=== PATIENT | female | born 1945 | race Two or more races ===

== ENCOUNTER 2019-02-14 12:28 | Inpatient (IN) | payer OTHER ==
[~2019-02-14] VITALS: Ht 160 cm; Wt 50.3 kg
[2019-02-26] MEDS ORDERED: GABAPENTIN800 MG PO (10:38)
[2019-02-26] MEDS ORDERED: ROVASTATIN PO (10:39)
[2019-02-26] MEDS ORDERED: FOLIC ACID1 MG PO (10:40)
[2019-02-26] MEDS ORDERED: PREDISONE PO (10:41)
[2019-02-26] MEDS ORDERED: METHOTREXATE2.5 MG PO (10:42)
[2019-03-05] MEDS ORDERED: PREDNISONE 5MG (09:52)
[2019-03-05] MEDS ORDERED: ROSUVASTATIN CA20 MG PO (09:53)
[2019-03-08] MEDS ORDERED: OXYC1TAB9 PO (10:06)
[2019-03-08] MEDS ORDERED: INTESTINEX680 M1 PO (10:07)
== END 2019-03-08 12:11 | disposition home or self-care (01) | DRG 330 ==
LOC: SURG 02-26 09:15 → O/R 03-05 05:36 → SURG 03-05 05:36
PROVIDERS: ADMIT Surgery
PROC: 0DJD8ZZ Inspection of Lower Intestinal Tract, Via Natural or Artificial Opening Endoscopic (ICD-10-PCS; 2019-03-05)
PROC: 0DTN4ZZ Resection of Sigmoid Colon, Percutaneous Endoscopic Approach (ICD-10-PCS; principal; 2019-03-05 12:00)
DX: K57.33 Diverticulitis of large intestine without perforation or abscess with bleeding (principal); K56.699 Other intestinal obstruction unspecified as to partial versus complete obstruction

== ENCOUNTER 2019-03-13 23:35 | Inpatient (IN) | payer OTHER ==
[~2019-03-13] VITALS: Ht 160 cm; Wt 54.4 kg
[~2019-03-13 23:35] MED LIST: FOLIC ACID1 MG PO; GABAPENTIN800 MG PO; INTESTINEX680 M1 PO; METHOTREXATE2.5 MG PO; OXYC1TAB9 PO; PREDISONE PO; PREDNISONE 5MG; ROSUVASTATIN CA20 MG PO; ROVASTATIN PO
--- NOTE | 2019-03-13 23:45 | NUR ---
PACIENTE ALERTA Y ORIENTADA X3. PACIENTE TRANSFERIDA DESDE [facility] EN [facility]. REFIERE VENIR POR DOLOR ABDOMINAL DESDE MILLER EN LA MANANA. REFIERE FUE OPERADA EL JARETT [address] MONTEIRO POR DIVERTICULOS. PACIENTE EN PANFILO CON BARANDAS ELEVADAS EN AREA DE OBSERVACION.
--- NOTE | 2019-03-14 01:11 | NUR ---
MS Clare MACKAY ORIENTA A PACIENTE SOBRE ORDENES MEDICAS, COLECTA MUESTRAS DE JOE, CANALIZA VENA Y ADMINISTRA MEDICAMENTOS. PENDIENTE CT SCAN NOTIFICADO A MS VAZQUEZ.
--- NOTE | 2019-03-14 01:17 | NUR ---
PACIENTE ALERTA Y ORIENTADA X3. SE OBSERVA ULCERA EN LADO JUAN JOSÉ CERCA DEL AREA SACRAL. PACIENTE REFIERE SE LA ESTAN CURANDO EN LA CASA.
--- NOTE | 2019-03-14 07:44 | NUR ---
PACIENTE ALERTA Y ORIENTADA EN CAMA CON BUEN PATRON RESPIRATORIO Y PIEL TIBIA AL TACTO. SE OBSERVA R/L @100ML/HR EN BRAZO RT. PENDIENTE CONSULTA CON DR. MONTEIRO.
[2019-03-19] MEDS ORDERED: GABAPENTIN800 MG PO (13:53)
[2019-03-19] MEDS ORDERED: ALPRAZOLAM0.5 M1 (13:54)
[2019-03-20] MEDS ORDERED: DICY20TA PO (15:23)
== END 2019-03-21 09:08 | disposition home or self-care (01) | DRG 392 ==
LOC: ER 23:35 → SURG 03-14 08:05
PROVIDERS: ADMIT Surgery
PROC: BW21Y0Z Computerized Tomography (CT Scan) of Abdomen and Pelvis using Other Contrast, Unenhanced and Enhanced (ICD-10-PCS; principal; 2019-03-14)
DX: K57.32 Diverticulitis of large intestine without perforation or abscess without bleeding (principal); M06.89 Other specified rheumatoid arthritis, multiple sites; I10 Essential (primary) hypertension; K66.8 Other specified disorders of peritoneum